=== PATIENT | female | born 1955 | race Caucasian/White ===

== ENCOUNTER 2019-02-24 17:50 | Inpatient (IN) ==
[2019-02-24] MEDS ORDERED: 0.9 % Sodium Chloride 1,000 ML IVC ONE (18:53)
[2019-02-24] MEDS ORDERED: Isovue-370 500 ML BOTTLE IVP ONE (18:54)
[2019-02-24 18:55] LABS: Basophils # 0.1 K/mcL (0.0-0.2); Basophils % 0.6 %; Eosinophils # 0.1 K/mcL (0.0-0.6); Eosinophils % 1.2 %; Hematocrit 43.9 % (35.3-44.9); Immature Granulocytes % 0.3 % (0-4); Lymphocytes # 1.9 K/mcL (0.6-4.6); Lymphocytes % 24.5 %; Mean Corpuscular HGB Conc 34.2 g/dL (31.6-35.5); Mean Corpuscular Hemoglobin 28.3 pg (28.0-33.3); Mean Corpuscular Volume 82.8 fL (83.0-100.0); Monocytes # 0.5 K/mcL (0.0-1.3); Monocytes % 6.4 %; Neutrophils # 5.2 K/mcL (1.6-8.9); Platelet Count 297 K/mcL (140-400); Red Cell Distribution Width 13.5 % (11.5-14.5); White Blood Count 7.8 K/mcL (4.3-11.1)
[2019-02-24 19:11] LABS: Alanine Aminotransferase 11 Units/L (7-52); Albumin 4.4 g/dL (3.5-5.7); Albumin/Globulin Ratio 1.5 (1.1-2.2); Alkaline Phosphatase 69 Units/L (34-104); Aspartate Amino Transferase 15 Units/L (13-39); BUN/Creatinine Ratio 16 (6-26); Bilirubin,Total 0.4 mg/dL (0.3-1.0); Blood Urea Nitrogen 9 mg/dL (8-23); Calcium 9.9 mg/dL (8.6-10.3); Carbon Dioxide 28 mEq/L (23-29); Chloride 99 mEq/L (98-107); Globulin 2.9 g/dL (2.4-3.5); Glucose 106 mg/dL (70-105); Magnesium 1.5 mg/dL (1.6-2.6); Osmolality,Calculated 277 (280-300); Phosphorous 3.3 mg/dL (2.7-4.5); Sodium 134 mEq/L (136-145); Total Protein 7.3 g/dL (6.4-8.9); Troponin I < 0.03 ng/mL (< 0.04); eGFR For African Americans > 60 (> 60); eGFR For Non-African Americans > 60 (> 60)
[2019-02-24 19:32] LABS: Bilirubin,Urine Negative (Negative); Blood,Urine Trace (Negative); Clarity,Urine Cloudy (Clear); Color,Urine Yellow (Yellow); Glucose,Urine (UA) Normal (Normal); Ketones,Urine Trace mg/dL (Negative); Leukocyte Esterase,Urine Moderate (Negative); Nitrite,Urine Negative (Negative); PH,Urine 6.5 pH Units (5.0-8.0); Protein,Urine Negative (Neg-Trace); Specific Gravity,Urine 1.007 (1.010-1.025); Urobilinogen,Urine Normal (Normal)
[2019-02-24 19:33] LABS: Bacteria,Urine Few per hpf (None-Few); Hyaline Casts,Urine Few per lpf (None-Few); Squamous Epithelial Cell,Urine Many per lpf (None-Few); WBC,Urine 30-50 per hpf (0-3)
[2019-02-25] MEDS ORDERED: Naloxone 0.4 MG/ML INJ IVP PRN (02:55)
[2019-02-25] MEDS ORDERED: 0.9 % Sodium Chloride 1,000 ML IVC SCH (03:00)
[2019-02-25 04:57] LABS: Basophils # 0.1 K/mcL (0.0-0.2); Basophils % 0.6 %; Eosinophils # 0.1 K/mcL (0.0-0.6); Eosinophils % 1.5 %; Hematocrit 42.4 % (35.3-44.9); Hemoglobin 13.8 g/dL (11.5-15.4); Immature Granulocytes % 0.1 % (0-4); Lymphocytes # 2.3 K/mcL (0.6-4.6); Mean Corpuscular HGB Conc 32.5 g/dL (31.6-35.5); Mean Corpuscular Hemoglobin 27.9 pg (28.0-33.3); Mean Corpuscular Volume 85.8 fL (83.0-100.0); Mean Platelet Volume 9.7 fL (9.4-12.4); Monocytes # 0.7 K/mcL (0.0-1.3); Monocytes % 7.4 %; Neutrophils # 5.7 K/mcL (1.6-8.9); Platelet Count 253 K/mcL (140-400); Red Blood Count 4.94 M/mcL (3.82-4.97); Red Cell Distribution Width 13.3 % (11.5-14.5); Segmented Neutrophils % 64.4 %; White Blood Count 8.8 K/mcL (4.3-11.1)
[2019-02-25 05:18] LABS: Alanine Aminotransferase 10 Units/L (7-52); Albumin 4.1 g/dL (3.5-5.7); Albumin/Globulin Ratio 1.6 (1.1-2.2); Alkaline Phosphatase 63 Units/L (34-104); Aspartate Amino Transferase 15 Units/L (13-39); BUN/Creatinine Ratio 14 (6-26); Bilirubin,Total 0.4 mg/dL (0.3-1.0); Blood Urea Nitrogen 9 mg/dL (8-23); Calcium 9.4 mg/dL (8.6-10.3); Carbon Dioxide 24 mEq/L (23-29); Chloride 103 mEq/L (98-107); Globulin 2.6 g/dL (2.4-3.5); Glucose 116 mg/dL (70-105); Magnesium 1.8 mg/dL (1.6-2.6); Osmolality,Calculated 284 (280-300); Potassium 3.7 mEq/L (3.5-5.1); Sodium 137 mEq/L (136-145); Total Protein 6.7 g/dL (6.4-8.9); eGFR For African Americans > 60 (> 60); eGFR For Non-African Americans > 60 (> 60)
[2019-02-25] MEDS ORDERED: Gadolinium Contrast Agent (WT Based) IV PRN ×2 (12:59→15:43)
[2019-02-25] MEDS ORDERED: *HR* LORazepam 2 MG/ML VIAL IVP ONE (13:35)
[2019-02-25] MEDS ORDERED: *HR* LORazepam 1 MG TABLET PO ONE (14:08)
[2019-02-25 14:12] LABS: Prothrombin Time 11.2 Seconds (9.4-12.1)
[2019-02-25] MEDS ORDERED: Ipratropium/Albuterol Neb 3 ML IH PRN (15:44)
[2019-02-25] MEDS ORDERED: Albuterol 2.5 MG/3 ML NEBULIZER IH PRN (15:44)
[2019-02-25] MEDS: *HR* OxyCODONE/APAP 10/325 TABLET PO PRN (18:43)
[2019-02-25] MEDS: Gabapentin 400 MG CAPSULE PO SCH (20:26)
[2019-02-26 05:29] LABS: Hematocrit 39.8 % (35.3-44.9); Hemoglobin 13.3 g/dL (11.5-15.4); Mean Corpuscular HGB Conc 33.4 g/dL (31.6-35.5); Mean Corpuscular Hemoglobin 27.8 pg (28.0-33.3); Mean Corpuscular Volume 83.1 fL (83.0-100.0); Mean Platelet Volume 9.6 fL (9.4-12.4); Platelet Count 248 K/mcL (140-400); Red Blood Count 4.79 M/mcL (3.82-4.97); Red Cell Distribution Width 13.3 % (11.5-14.5)
[2019-02-26 05:48] LABS: BUN/Creatinine Ratio 16 (6-26); Blood Urea Nitrogen 8 mg/dL (8-23); Calcium 9.1 mg/dL (8.6-10.3); Carbon Dioxide 24 mEq/L (23-29); Chloride 103 mEq/L (98-107); Glucose 96 mg/dL (70-105); Osmolality,Calculated 282 (280-300); Potassium 3.6 mEq/L (3.5-5.1); Sodium 137 mEq/L (136-145); eGFR For African Americans > 60 (> 60); eGFR For Non-African Americans > 60 (> 60)
[2019-02-26] MEDS: *HR* Heparin 5,000 UNIT/ML VIAL SQ SCH ×2 (09:18→18:21)
[2019-02-26] MEDS: Gabapentin 400 MG CAPSULE PO SCH ×2 (09:19→22:21)
[2019-02-26] MEDS ORDERED: Gadolinium Contrast Agent (WT Based) IV PRN (09:49)
[2019-02-26] MEDS ORDERED: *HR* LORazepam 1 MG TABLET PO ONE (09:49)
[2019-02-26] MEDS: *HR* OxyCODONE/APAP 10/325 TABLET PO PRN (20:19)
[2019-02-27] MEDS: *HR* Heparin 5,000 UNIT/ML VIAL SQ SCH (05:38)
[2019-02-27 07:20] LABS: Hematocrit 40.4 % (35.3-44.9); Mean Corpuscular HGB Conc 32.2 g/dL (31.6-35.5); Mean Corpuscular Hemoglobin 27.7 pg (28.0-33.3); Mean Corpuscular Volume 86.1 fL (83.0-100.0); Mean Platelet Volume 9.5 fL (9.4-12.4); Platelet Count 238 K/mcL (140-400); Red Blood Count 4.69 M/mcL (3.82-4.97); Red Cell Distribution Width 13.3 % (11.5-14.5); White Blood Count 7.4 K/mcL (4.3-11.1)
[2019-02-27 07:41] LABS: BUN/Creatinine Ratio 18 (6-26); Blood Urea Nitrogen 10 mg/dL (8-23); Calcium 9.2 mg/dL (8.6-10.3); Carbon Dioxide 25 mEq/L (23-29); Chloride 101 mEq/L (98-107); Glucose 94 mg/dL (70-105); Osmolality,Calculated 281 (280-300); Potassium 3.9 mEq/L (3.5-5.1); Sodium 136 mEq/L (136-145); eGFR For African Americans > 60 (> 60); eGFR For Non-African Americans > 60 (> 60)
[2019-02-27] MEDS: Gabapentin 400 MG CAPSULE PO SCH (09:50)
[2019-02-27 15:26] VITALS: BP 104/68
== END 2019-02-27 17:17 | disposition home or self-care (01) | DRG 948 ==
LOC: 3ANU 17:50 → EMEROOARM 17:50 → SUATTDRO 23:25 → 3ANU 23:50 → SUATTDRO 02-25 16:59
PROVIDERS: ADMIT Family Medicine; ATTEND Family Medicine

== ENCOUNTER 2019-03-02 19:17 | Inpatient (IN) ==
[2019-03-02] MEDS ORDERED: Ondansetron ODT 4 MG TAB.RAPDIS SL STA (20:11)
[2019-03-02] MEDS ORDERED: Ringers Solution, Lactated 1,000 ML IVC ONE (20:12)
[2019-03-02] MEDS ORDERED: Ringers Solution, Lactated 1,000 ML ONE (20:19)
[2019-03-02 20:22] LABS: Basophils # 0.1 K/mcL (0.0-0.2); Basophils % 0.5 %; Eosinophils # 0.1 K/mcL (0.0-0.6); Eosinophils % 0.5 %; Hematocrit 47.8 % (35.3-44.9); Immature Granulocytes % 0.3 % (0-4); Lymphocytes # 1.9 K/mcL (0.6-4.6); Lymphocytes % 17.7 %; Mean Corpuscular HGB Conc 33.5 g/dL (31.6-35.5); Mean Corpuscular Hemoglobin 28.1 pg (28.0-33.3); Mean Corpuscular Volume 83.9 fL (83.0-100.0); Mean Platelet Volume 9.6 fL (9.4-12.4); Monocytes # 0.6 K/mcL (0.0-1.3); Monocytes % 5.7 %; Neutrophils # 8.2 K/mcL (1.6-8.9); Platelet Count 312 K/mcL (140-400); Red Cell Distribution Width 13.3 % (11.5-14.5); Segmented Neutrophils % 75.3 %
[2019-03-02 20:29] LABS: Prothrombin Time 11.8 Seconds (9.4-12.1)
[2019-03-02 20:32] LABS: Activated Partial Thrombo Time 32.4 Seconds (26.0-36.0)
[2019-03-02 20:37] LABS: Alanine Aminotransferase 11 Units/L (7-52); Albumin 4.5 g/dL (3.5-5.7); Albumin/Globulin Ratio 1.5 (1.1-2.2); Alkaline Phosphatase 65 Units/L (34-104); Aspartate Amino Transferase 14 Units/L (13-39); BUN/Creatinine Ratio 19 (6-26); Bilirubin,Total 0.4 mg/dL (0.3-1.0); Blood Urea Nitrogen 12 mg/dL (8-23); Calcium 10.3 mg/dL (8.6-10.3); Carbon Dioxide 31 mEq/L (23-29); Chloride 99 mEq/L (98-107); Globulin 3.1 g/dL (2.4-3.5); Glucose 110 mg/dL (70-105); Magnesium 1.8 mg/dL (1.6-2.6); Osmolality,Calculated 286 (280-300); Phosphorous 3.5 mg/dL (2.7-4.5); Potassium 4.5 mEq/L (3.5-5.1); Sodium 138 mEq/L (136-145); Total Protein 7.6 g/dL (6.4-8.9); eGFR For African Americans > 60 (> 60); eGFR For Non-African Americans > 60 (> 60)
[2019-03-02 21:37] LABS: Bilirubin,Urine Negative (Negative); Blood,Urine Negative (Negative); Clarity,Urine Cloudy (Clear); Color,Urine Yellow (Yellow); Glucose,Urine (UA) Normal (Normal); Ketones,Urine 40 mg/dL (Negative); Leukocyte Esterase,Urine Negative (Negative); Nitrite,Urine Negative (Negative); Protein,Urine 30 mg/dL (Neg-Trace); Urobilinogen,Urine Normal (Normal)
[2019-03-02 21:39] LABS: Bacteria,Urine None Seen per hpf (None-Few); Squamous Epithelial Cell,Urine Many per lpf (None-Few)
[2019-03-02 21:49] LABS: Hyaline Casts,Urine Many per lpf (None-Few)
[2019-03-02] MEDS ORDERED: Acetaminophen 325 MG TABLET PO PRN (22:23)
[2019-03-02] MEDS ORDERED: traMADol 50 MG TABLET PO PRN (22:23)
[2019-03-02] MEDS: Gabapentin 400 MG CAPSULE PO SCH (23:25)
[2019-03-02] MEDS: *HR* OxyCODONE Immed Rel 5 MG TABLET PO PRN (23:25)
[2019-03-02] MEDS: Ringers Solution, Lactated 1,000 ML IVC SCH (23:26)
[2019-03-03] MEDS: *HR* Heparin 5,000 UNIT/ML VIAL SQ SCH ×2 (05:35→16:45)
[2019-03-03 06:51] LABS: Basophils # 0.1 K/mcL (0.0-0.2); Basophils % 0.6 %; Eosinophils # 0.2 K/mcL (0.0-0.6); Eosinophils % 1.7 %; Immature Granulocytes % 0.2 % (0-4); Lymphocytes # 3.2 K/mcL (0.6-4.6); Lymphocytes % 33.4 %; Mean Corpuscular HGB Conc 32.1 g/dL (31.6-35.5); Mean Corpuscular Hemoglobin 27.9 pg (28.0-33.3); Mean Corpuscular Volume 86.9 fL (83.0-100.0); Mean Platelet Volume 9.5 fL (9.4-12.4); Monocytes # 0.8 K/mcL (0.0-1.3); Monocytes % 8.5 %; Neutrophils # 5.3 K/mcL (1.6-8.9); Platelet Count 236 K/mcL (140-400); Red Blood Count 4.95 M/mcL (3.82-4.97); Red Cell Distribution Width 13.3 % (11.5-14.5); Segmented Neutrophils % 55.6 %; White Blood Count 9.5 K/mcL (4.3-11.1)
[2019-03-03 06:52] LABS: Hemoglobin 13.8 g/dL (11.5-15.4)
[2019-03-03 07:28] LABS: BUN/Creatinine Ratio 24 (6-26); Blood Urea Nitrogen 12 mg/dL (8-23); Calcium 9.5 mg/dL (8.6-10.3); Carbon Dioxide 29 mEq/L (23-29); Chloride 101 mEq/L (98-107); Glucose 97 mg/dL (70-105); Osmolality,Calculated 288 (280-300); Potassium 3.8 mEq/L (3.5-5.1); Sodium 139 mEq/L (136-145); eGFR For African Americans > 60 (> 60); eGFR For Non-African Americans > 60 (> 60)
[2019-03-03] MEDS: Gabapentin 400 MG CAPSULE PO SCH ×2 (07:40→21:39)
[2019-03-03] MEDS: Ringers Solution, Lactated 1,000 ML IVC SCH ×3 (07:40→18:27)
[2019-03-03] MEDS ORDERED: [UNRECOGNIZED DRUG - OTHER] IVC SCH (14:30)
[2019-03-03] MEDS: *HR* OxyCODONE Immed Rel 5 MG TABLET PO PRN (15:26)
[2019-03-03] MEDS: Pyridostigmine Br 60 MG TABLET PO SCH ×2 (15:27→22:51)
[2019-03-03] MEDS ORDERED: Pyridostigmine Br 60 MG TABLET PO SCH (16:00)
[2019-03-03] MEDS: Immune Glob, Gamma (Privigen) 20 GM/200 ML INFUS..BTL IVC SCH (16:28)
[2019-03-04 05:49] LABS: BUN/Creatinine Ratio 19 (6-26); Blood Urea Nitrogen 9 mg/dL (8-23); Calcium 8.6 mg/dL (8.6-10.3); Carbon Dioxide 24 mEq/L (23-29); Chloride 106 mEq/L (98-107); Glucose 87 mg/dL (70-105); Osmolality,Calculated 280 (280-300); Potassium 3.8 mEq/L (3.5-5.1); Sodium 136 mEq/L (136-145); eGFR For African Americans > 60 (> 60); eGFR For Non-African Americans > 60 (> 60)
[2019-03-04] MEDS: *HR* Heparin 5,000 UNIT/ML VIAL SQ SCH ×2 (06:24→16:38)
[2019-03-04] MEDS: Ringers Solution, Lactated 1,000 ML IVC SCH (07:05)
[2019-03-04] MEDS: Pyridostigmine Br 60 MG TABLET PO SCH ×2 (07:05→15:28)
[2019-03-04] MEDS: Gabapentin 400 MG CAPSULE PO SCH (07:05)
[2019-03-04] MEDS: Ondansetron 4 MG/2 ML VIAL IVP PRN ×2 (09:18→15:28)
[2019-03-04] MEDS: *HR* OxyCODONE Immed Rel 5 MG TABLET PO PRN (12:23)
[2019-03-04 15:40] VITALS: BP 144/87
[2019-03-04] MEDS: Immune Glob, Gamma (Privigen) 20 GM/200 ML INFUS..BTL IVC SCH (15:44)
[2019-03-04] MEDS ORDERED: [UNRECOGNIZED DRUG - OTHER] IVC SCH (17:00)
== END 2019-03-04 18:59 | disposition critical access hospital (66) | DRG 57 ==
LOC: 3BNU 19:17 → EMEROOARM 19:17 → 3BNU 22:39
PROVIDERS: ADMIT Internal Medicine; ATTEND Internal Medicine

== ENCOUNTER 2019-11-04 16:54 | Inpatient (IN) ==
[2019-11-04] MEDS ORDERED: Ipratropium/Albuterol Neb 3 ML IH ONE ×2 (17:05→17:47)
[2019-11-04] MEDS ORDERED: methylPREDNISolone 125 MG/2 ML VIAL IVP ONE (17:40)
[2019-11-04 17:47] LABS: Alanine Aminotransferase 42 Units/L (7-52); Albumin 4.1 g/dL (3.5-5.7); Albumin/Globulin Ratio 1.8 (1.1-2.2); Alkaline Phosphatase 82 Units/L (34-104); Aspartate Amino Transferase 12 Units/L (13-39); BUN/Creatinine Ratio 36 (6-26); Bilirubin,Direct 0.1 mg/dL (0.0-0.2); Bilirubin,Indirect 0.3 mg/dL (0.0-1.0); Bilirubin,Total 0.4 mg/dL (0.3-1.0); Blood Urea Nitrogen 27 mg/dL (8-23); Calcium 9.5 mg/dL (8.6-10.3); Carbon Dioxide 25 mEq/L (23-29); Chloride 95 mEq/L (98-107); Globulin 2.3 g/dL (2.4-3.5); Glucose 185 mg/dL (70-105); Osmolality,Calculated 282 (280-300); Potassium 4.3 mEq/L (3.5-5.1); Sodium 131 mEq/L (136-145); Total Protein 6.4 g/dL (6.4-8.9); Troponin I < 0.03 ng/mL (< 0.04); eGFR For African Americans > 60 (> 60); eGFR For Non-African Americans > 60 (> 60)
[2019-11-04 17:56] LABS: Activated Partial Thrombo Time 24.3 Seconds (26.0-36.0); INR 0.9; Prothrombin Time 10.6 Seconds (9.4-12.1)
[2019-11-04 18:05] LABS: Hematocrit 32.2 % (35.3-44.9); Hemoglobin 10.1 g/dL (11.5-15.4); Mean Corpuscular HGB Conc 31.4 g/dL (31.6-35.5); Mean Corpuscular Hemoglobin 28.6 pg (28.0-33.3); Mean Corpuscular Volume 91.2 fL (83.0-100.0); Neutrophils # 2.7 K/mcL (1.6-8.9); Platelet Count 226 K/mcL (140-400); Red Blood Count 3.53 M/mcL (3.82-4.97); Red Cell Distribution Width 16.5 % (11.5-14.5); Segmented Neutrophils % 71.6 %; White Blood Count 3.7 K/mcL (4.3-11.1)
[2019-11-04 18:06] LABS: Basophils % 0.3 %; Immature Granulocytes % 5.7 % (0-4); Lymphocytes # 0.7 K/mcL (0.6-4.6); Lymphocytes % 19.1 %; Mean Platelet Volume 8.5 fL (9.4-12.4); Monocytes # 0.1 K/mcL (0.0-1.3); Monocytes % 3.3 %
[2019-11-04 18:16] LABS: Dohle Bodies Present (Not Present)
[2019-11-04] MEDS ORDERED: Azithromycin 500 MG in 0.9 % Sodium Chloride 250 ML IVPB SCH (20:00)
[2019-11-04] MEDS ORDERED: Acetaminophen 325 MG TABLET PO PRN (20:07)
[2019-11-04] MEDS: *HR* Enoxaparin 80 MG/0.8 ML SYRINGE SQ SCH (22:18)
[2019-11-04] MEDS: Gabapentin 400 MG CAPSULE PO SCH (22:19)
[2019-11-04] MEDS: Melatonin 3 MG TABLET PO SCH (22:19)
[2019-11-04] MEDS: [UNRECOGNIZED DRUG - OTHER] PO SCH (22:19)
[2019-11-04] MEDS: Ipratropium 1 PUFF INHALER IH SCH (22:59)
[2019-11-04] MEDS ORDERED: Ipratropium/Albuterol Neb 3 ML IH SCH (23:00)
[2019-11-04] MEDS: MethylPREDNISolone 40 MG/ML VIAL IVP SCH (23:23)
[2019-11-04] MEDS: *HR* OxyCODONE/APAP 10/325 TABLET PO PRN (23:23)
[2019-11-05 02:21] LABS: Basophils % 0.6 %; Hematocrit 28.7 % (35.3-44.9); Hemoglobin 9.2 g/dL (11.5-15.4); Immature Granulocytes % 6.5 % (0-4); Lymphocytes # 0.2 K/mcL (0.6-4.6); Lymphocytes % 14.2 %; Mean Corpuscular HGB Conc 32.1 g/dL (31.6-35.5); Mean Corpuscular Hemoglobin 29.3 pg (28.0-33.3); Mean Corpuscular Volume 91.4 fL (83.0-100.0); Mean Platelet Volume 8.9 fL (9.4-12.4); Monocytes # 0.1 K/mcL (0.0-1.3); Monocytes % 7.7 %; Neutrophils # 1.2 K/mcL (1.6-8.9); Platelet Count 202 K/mcL (140-400); Red Blood Count 3.14 M/mcL (3.82-4.97); Red Cell Distribution Width 16.4 % (11.5-14.5); White Blood Count 1.7 K/mcL (4.3-11.1)
[2019-11-05 02:39] LABS: Alanine Aminotransferase 37 Units/L (7-52); Albumin 3.7 g/dL (3.5-5.7); Albumin/Globulin Ratio 1.8 (1.1-2.2); Alkaline Phosphatase 72 Units/L (34-104); Aspartate Amino Transferase 10 Units/L (13-39); BUN/Creatinine Ratio 37 (6-26); Bilirubin,Total 0.4 mg/dL (0.3-1.0); Blood Urea Nitrogen 26 mg/dL (8-23); Carbon Dioxide 26 mEq/L (23-29); Chloride 96 mEq/L (98-107); Globulin 2.1 g/dL (2.4-3.5); Glucose 221 mg/dL (70-105); Osmolality,Calculated 284 (280-300); Potassium 4.5 mEq/L (3.5-5.1); Sodium 131 mEq/L (136-145); Total Protein 5.8 g/dL (6.4-8.9); eGFR For African Americans > 60 (> 60); eGFR For Non-African Americans > 60 (> 60)
[2019-11-05 02:42] LABS: Platelet Estimate Normal (Normal)
[2019-11-05] MEDS: Ipratropium 1 PUFF INHALER IH SCH ×6 (04:05→23:22)
[2019-11-05] MEDS ORDERED: 0.9 % Sodium Chloride 1,000 ML IVC SCH (05:15)
[2019-11-05] MEDS: MethylPREDNISolone 40 MG/ML VIAL IVP SCH ×4 (05:27→22:54)
[2019-11-05] MEDS: Gabapentin 300 MG CAPSULE PO SCH (07:58)
[2019-11-05] MEDS: *HR* Enoxaparin 80 MG/0.8 ML SYRINGE SQ SCH ×2 (07:58→19:50)
[2019-11-05] MEDS: [UNRECOGNIZED DRUG - OTHER] PO SCH ×3 (07:59→21:42)
[2019-11-05] MEDS: *HR* OxyCODONE/APAP 10/325 TABLET PO PRN ×3 (08:19→22:53)
[2019-11-05] MEDS ORDERED: *HR* OxyCODONE/APAP 10/325 TABLET PO PRN (10:29)
[2019-11-05] MEDS ORDERED: Dextrose Gel 15 GM/37.5 ML TUBE PO PRN ×2 (12:14)
[2019-11-05] MEDS ORDERED: D5% in Water 1,000 ML IVC PRN (12:14)
[2019-11-05] MEDS ORDERED: *HR* Dextrose 50 % in Water (Vial) 50 ML VIAL IVP PRN (12:14)
[2019-11-05] MEDS ORDERED: Insulin LISPRO 300 UNITS/3 ML VIAL SQ SCH ×2 (12:15)
[2019-11-05] MEDS: Melatonin 3 MG TABLET PO SCH (19:50)
[2019-11-05] MEDS: Gabapentin 400 MG CAPSULE PO SCH (19:50)
[2019-11-05] MEDS: Azithromycin 250 MG TABLET PO SCH (22:54)
[2019-11-06 02:02] LABS: Hematocrit 28.2 % (35.3-44.9); Hemoglobin 8.8 g/dL (11.5-15.4); Mean Corpuscular HGB Conc 31.2 g/dL (31.6-35.5); Mean Corpuscular Hemoglobin 28.4 pg (28.0-33.3); Mean Platelet Volume 8.9 fL (9.4-12.4); Platelet Count 167 K/mcL (140-400); Red Cell Distribution Width 15.9 % (11.5-14.5)
[2019-11-06 02:19] LABS: BUN/Creatinine Ratio 45 (6-26); Blood Urea Nitrogen 27 mg/dL (8-23); Calcium 8.9 mg/dL (8.6-10.3); Carbon Dioxide 26 mEq/L (23-29); Chloride 98 mEq/L (98-107); Glucose 149 mg/dL (70-105); Osmolality,Calculated 282 (280-300); Potassium 4.6 mEq/L (3.5-5.1); Sodium 132 mEq/L (136-145); eGFR For African Americans > 60 (> 60); eGFR For Non-African Americans > 60 (> 60)
[2019-11-06] MEDS: Ipratropium 1 PUFF INHALER IH SCH ×7 (04:22→23:42)
[2019-11-06] MEDS: *HR* OxyCODONE/APAP 10/325 TABLET PO PRN ×3 (04:49→19:55)
[2019-11-06] MEDS: MethylPREDNISolone 40 MG/ML VIAL IVP SCH ×2 (04:59→16:59)
[2019-11-06] MEDS ORDERED: Gabapentin 300 MG CAPSULE PO SCH (09:00)
[2019-11-06] MEDS: hydrALAZINE 25 MG TABLET PO SCH ×2 (09:14→16:59)
[2019-11-06] MEDS: *HR* Enoxaparin 80 MG/0.8 ML SYRINGE SQ SCH ×2 (09:14→19:55)
[2019-11-06] MEDS: Gabapentin 300 MG CAPSULE PO SCH (09:14)
[2019-11-06 09:18] LABS: Hematocrit 31.7 % (35.3-44.9); Hemoglobin 9.9 g/dL (11.5-15.4); Mean Corpuscular HGB Conc 31.2 g/dL (31.6-35.5); Mean Corpuscular Hemoglobin 28.8 pg (28.0-33.3); Mean Corpuscular Volume 92.2 fL (83.0-100.0); Mean Platelet Volume 9.1 fL (9.4-12.4); Monocytes # 0.1 K/mcL (0.0-1.3); Platelet Count 166 K/mcL (140-400); Red Blood Count 3.44 M/mcL (3.82-4.97); Red Cell Distribution Width 16.1 % (11.5-14.5)
[2019-11-06 09:51] LABS: Lymphocytes # 0.3 K/mcL (0.6-4.6); Neutrophils # 0.5 K/mcL (1.6-8.9); Platelet Estimate Normal (Normal)
[2019-11-06] MEDS: [UNRECOGNIZED DRUG - OTHER] PO SCH ×3 (10:10→19:58)
[2019-11-06] MEDS: Melatonin 3 MG TABLET PO SCH (19:54)
[2019-11-06] MEDS: Gabapentin 400 MG CAPSULE PO SCH (19:58)
[2019-11-06] MEDS: Azithromycin 250 MG TABLET PO SCH (22:42)
[2019-11-07] MEDS: hydrALAZINE 25 MG TABLET PO SCH ×4 (02:07→22:36)
[2019-11-07] MEDS: Ipratropium 1 PUFF INHALER IH SCH ×3 (04:05→11:30)
[2019-11-07 04:32] LABS: Amorphous Sediment,Urine Few per hpf (None-Few); Bacteria,Urine Many per hpf (None-Few); Bilirubin,Urine Negative (Negative); Blood,Urine Negative (Negative); Clarity,Urine Turbid (Clear); Color,Urine Light-Yellow (Yellow); Glucose,Urine (UA) Normal (Normal); Ketones,Urine Negative (Negative); Leukocyte Esterase,Urine Trace (Negative); Mucus,Urine Few per lpf (None-Few); Nitrite,Urine Positive (Negative); PH,Urine 8.5 pH Units (5.0-8.0); Protein,Urine Trace mg/dL (Neg-Trace); RBC,Urine 0-3 per hpf (0-3); Squamous Epithelial Cell,Urine Few per hpf (None-Few); Urobilinogen,Urine Normal (Normal); WBC,Urine 15-30 per hpf (0-3)
[2019-11-07] MEDS: *HR* OxyCODONE/APAP 10/325 TABLET PO PRN ×4 (05:09→22:43)
[2019-11-07] MEDS: MethylPREDNISolone 40 MG/ML VIAL IVP SCH (05:10)
[2019-11-07 07:08] LABS: BUN/Creatinine Ratio 45 (6-26); Blood Urea Nitrogen 29 mg/dL (8-23); Calcium 8.9 mg/dL (8.6-10.3); Carbon Dioxide 28 mEq/L (23-29); Chloride 97 mEq/L (98-107); Glucose 123 mg/dL (70-105); Osmolality,Calculated 281 (280-300); Potassium 3.8 mEq/L (3.5-5.1); Sodium 132 mEq/L (136-145); eGFR For African Americans > 60 (> 60); eGFR For Non-African Americans > 60 (> 60)
[2019-11-07] MEDS: cefTRIAXone 1,000 MG in Water for inj. (sterile) 10 ML IVP SCH (09:27)
[2019-11-07] MEDS: Gabapentin 300 MG CAPSULE PO SCH (09:28)
[2019-11-07] MEDS: *HR* Enoxaparin 80 MG/0.8 ML SYRINGE SQ SCH ×2 (09:28→22:35)
[2019-11-07] MEDS: [UNRECOGNIZED DRUG - OTHER] PO SCH ×3 (09:42→22:41)
[2019-11-07 10:01] LABS: Hematocrit 29.3 % (35.3-44.9); Hemoglobin 9.3 g/dL (11.5-15.4); Immature Granulocytes % 6.7 % (0-4); Mean Corpuscular HGB Conc 31.7 g/dL (31.6-35.5); Mean Corpuscular Hemoglobin 29.2 pg (28.0-33.3); Mean Corpuscular Volume 91.8 fL (83.0-100.0); Mean Platelet Volume 8.6 fL (9.4-12.4); Neutrophils # 0.6 K/mcL (1.6-8.9); Platelet Count 133 K/mcL (140-400); Red Blood Count 3.19 M/mcL (3.82-4.97); Red Cell Distribution Width 16.6 % (11.5-14.5); Segmented Neutrophils % 38.7 %; White Blood Count 1.6 K/mcL (4.3-11.1)
[2019-11-07 10:02] LABS: Basophils % 0.6 %; Lymphocytes # 0.7 K/mcL (0.6-4.6); Lymphocytes % 43.6 %; Monocytes # 0.2 K/mcL (0.0-1.3); Monocytes % 10.4 %; Platelet Estimate Slight Decrease (Normal)
[2019-11-07 10:03] LABS: Anisocytosis 1+ (Not Present)
[2019-11-07] MEDS: Ipratropium/Albuterol Neb 3 ML IH SCH ×3 (15:30→23:19)
[2019-11-07] MEDS: Azithromycin 250 MG TABLET PO SCH (22:36)
[2019-11-07] MEDS: Gabapentin 400 MG CAPSULE PO SCH (22:36)
[2019-11-07] MEDS: Melatonin 3 MG TABLET PO SCH (22:36)
[2019-11-08 02:13] LABS: Basophils % 0.9 %; Hematocrit 27.2 % (35.3-44.9); Hemoglobin 8.8 g/dL (11.5-15.4); Lymphocytes # 1.1 K/mcL (0.6-4.6); Lymphocytes % 34.8 %; Mean Corpuscular HGB Conc 32.4 g/dL (31.6-35.5); Mean Corpuscular Hemoglobin 29.9 pg (28.0-33.3); Mean Corpuscular Volume 92.5 fL (83.0-100.0); Mean Platelet Volume 9.5 fL (9.4-12.4); Monocytes # 0.1 K/mcL (0.0-1.3); Monocytes % 4.4 %; Neutrophils # 1.5 K/mcL (1.6-8.9); Nucleated Red Blood Cells 3.8 /100 WBC (0); Platelet Count 100 K/mcL (140-400); Red Blood Count 2.94 M/mcL (3.82-4.97); Segmented Neutrophils % 46.9 %; White Blood Count 3.2 K/mcL (4.3-11.1)
[2019-11-08 02:29] LABS: BUN/Creatinine Ratio 44 (6-26); Blood Urea Nitrogen 24 mg/dL (8-23); Calcium 8.4 mg/dL (8.6-10.3); Carbon Dioxide 27 mEq/L (23-29); Chloride 99 mEq/L (98-107); Glucose 98 mg/dL (70-105); Osmolality,Calculated 282 (280-300); Potassium 3.7 mEq/L (3.5-5.1); Sodium 134 mEq/L (136-145); eGFR For African Americans > 60 (> 60); eGFR For Non-African Americans > 60 (> 60)
[2019-11-08 02:58] LABS: Hypochromasia Present (Not Present); Platelet Estimate Decreased (Normal)
[2019-11-08 02:59] LABS: Anisocytosis 1+ (Not Present)
[2019-11-08] MEDS: Ipratropium/Albuterol Neb 3 ML IH SCH ×6 (03:50→23:39)
[2019-11-08] MEDS: *HR* OxyCODONE/APAP 10/325 TABLET PO PRN ×3 (08:57→23:14)
[2019-11-08] MEDS: hydrALAZINE 25 MG TABLET PO SCH ×3 (08:57→23:15)
[2019-11-08] MEDS: [UNRECOGNIZED DRUG - OTHER] PO SCH (08:57)
[2019-11-08] MEDS: predniSONE 20 MG TABLET PO SCH ×3 (08:58→16:07)
[2019-11-08] MEDS: Gabapentin 300 MG CAPSULE PO SCH (08:58)
[2019-11-08] MEDS: *HR* Enoxaparin 80 MG/0.8 ML SYRINGE SQ SCH ×2 (08:58→19:56)
[2019-11-08] MEDS: cefTRIAXone 1,000 MG in Water for inj. (sterile) 10 ML IVP SCH (08:58)
[2019-11-08] MEDS ORDERED: predniSONE 20 MG TABLET PO SCH (09:00)
[2019-11-08] MEDS: Cefepime HCl 2,000 MG in Water for inj. (sterile) 20 ML IVP SCH ×2 (12:47→19:55)
[2019-11-08] MEDS: [UNRECOGNIZED DRUG - OTHER] PO SCH ×2 (14:56→19:56)
[2019-11-08] MEDS: Gabapentin 400 MG CAPSULE PO SCH (19:55)
[2019-11-08] MEDS: Melatonin 3 MG TABLET PO SCH (19:56)
[2019-11-08] MEDS: Azithromycin 250 MG TABLET PO SCH (23:15)
[2019-11-09 01:29] LABS: Hematocrit 29.2 % (35.3-44.9); Hemoglobin 9.2 g/dL (11.5-15.4); Mean Corpuscular HGB Conc 31.5 g/dL (31.6-35.5); Mean Corpuscular Hemoglobin 29.1 pg (28.0-33.3); Mean Corpuscular Volume 92.4 fL (83.0-100.0); Mean Platelet Volume 9.1 fL (9.4-12.4); Nucleated Red Blood Cells 0.8 /100 WBC (0); Red Blood Count 3.16 M/mcL (3.82-4.97); Red Cell Distribution Width 17.6 % (11.5-14.5); White Blood Count 8.6 K/mcL (4.3-11.1)
[2019-11-09 01:41] LABS: BUN/Creatinine Ratio 30 (6-26); Blood Urea Nitrogen 18 mg/dL (8-23); Calcium 8.8 mg/dL (8.6-10.3); Carbon Dioxide 22 mEq/L (23-29); Chloride 98 mEq/L (98-107); Glucose 200 mg/dL (70-105); Osmolality,Calculated 284 (280-300); Potassium 4.6 mEq/L (3.5-5.1); Sodium 133 mEq/L (136-145); eGFR For African Americans > 60 (> 60); eGFR For Non-African Americans > 60 (> 60)
[2019-11-09 02:04] LABS: Platelet Count 66 K/mcL (140-400)
[2019-11-09 02:07] LABS: Lymphocytes # 1.4 K/mcL (0.6-4.6); Monocytes # 0.2 K/mcL (0.0-1.3); Neutrophils # 6.2 K/mcL (1.6-8.9)
[2019-11-09] MEDS: Cefepime HCl 2,000 MG in Water for inj. (sterile) 20 ML IVP SCH ×3 (03:07→21:01)
[2019-11-09] MEDS: Ipratropium/Albuterol Neb 3 ML IH SCH ×6 (03:48→23:20)
[2019-11-09] MEDS: *HR* OxyCODONE/APAP 10/325 TABLET PO PRN ×3 (06:13→21:02)
[2019-11-09] MEDS: Gabapentin 300 MG CAPSULE PO SCH (07:41)
[2019-11-09] MEDS: predniSONE 20 MG TABLET PO SCH ×3 (07:41→17:16)
[2019-11-09] MEDS: *HR* Enoxaparin 80 MG/0.8 ML SYRINGE SQ SCH (07:41)
[2019-11-09] MEDS: [UNRECOGNIZED DRUG - OTHER] PO SCH ×3 (07:42→21:02)
[2019-11-09] MEDS: hydrALAZINE 25 MG TABLET PO SCH ×2 (07:47→17:08)
[2019-11-09] MEDS: Melatonin 3 MG TABLET PO SCH (21:02)
[2019-11-09] MEDS: Gabapentin 400 MG CAPSULE PO SCH (21:02)
[2019-11-10] MEDS: hydrALAZINE 25 MG TABLET PO SCH ×3 (01:42→17:14)
[2019-11-10] MEDS: Cefepime HCl 2,000 MG in Water for inj. (sterile) 20 ML IVP SCH ×3 (03:15→18:06)
[2019-11-10] MEDS: *HR* OxyCODONE/APAP 10/325 TABLET PO PRN ×3 (03:19→21:28)
[2019-11-10] MEDS: Ipratropium/Albuterol Neb 3 ML IH SCH ×5 (03:36→20:21)
[2019-11-10 04:44] LABS: Hematocrit 26.1 % (35.3-44.9); Hemoglobin 8.2 g/dL (11.5-15.4); Immature Platelets 3.9 % (1.1-6.1); Mean Corpuscular HGB Conc 31.4 g/dL (31.6-35.5); Mean Corpuscular Hemoglobin 28.9 pg (28.0-33.3); Mean Corpuscular Volume 91.9 fL (83.0-100.0); Mean Platelet Volume 9.4 fL (9.4-12.4); Nucleated Red Blood Cells 0.6 /100 WBC (0); Red Blood Count 2.84 M/mcL (3.82-4.97); Red Cell Distribution Width 17.2 % (11.5-14.5); White Blood Count 15.5 K/mcL (4.3-11.1)
[2019-11-10 04:47] LABS: Platelet Count 71 K/mcL (140-400)
[2019-11-10 05:00] LABS: BUN/Creatinine Ratio 28 (6-26); Blood Urea Nitrogen 19 mg/dL (8-23); Calcium 9.2 mg/dL (8.6-10.3); Carbon Dioxide 27 mEq/L (23-29); Chloride 97 mEq/L (98-107); Glucose 150 mg/dL (70-105); Osmolality,Calculated 279 (280-300); Potassium 4.6 mEq/L (3.5-5.1); Sodium 132 mEq/L (136-145); eGFR For African Americans > 60 (> 60); eGFR For Non-African Americans > 60 (> 60)
[2019-11-10 05:05] LABS: Anisocytosis 1+ (Not Present); Lymphocytes # 1.9 K/mcL (0.6-4.6); Microcytosis Present (Not Present); Monocytes # 0.3 K/mcL (0.0-1.3); Neutrophils # 12.1 K/mcL (1.6-8.9); Platelet Estimate Decreased (Normal); Reactive Lymphocytes Present (Not Present)
[2019-11-10 05:06] LABS: Toxic Granulation Present (Not Present)
[2019-11-10] MEDS: Gabapentin 300 MG CAPSULE PO SCH (08:47)
[2019-11-10] MEDS: predniSONE 20 MG TABLET PO SCH ×3 (08:47→16:05)
[2019-11-10] MEDS: [UNRECOGNIZED DRUG - OTHER] PO SCH ×3 (08:51→21:28)
[2019-11-10] MEDS ORDERED: Heparin 1,000 UNITS/500 mL 500 ML ONE (12:45)
[2019-11-10] MEDS ORDERED: 0.9 % Sodium Chloride 500 ML ONE (12:58)
[2019-11-10] MEDS ORDERED: *HR* FentaNYL (PF) 100 MCG/2 ML VIAL ONE (12:59)
[2019-11-10] MEDS ORDERED: *HR* Midazolam HCl 2 MG/2 ML VIAL ONE (12:59)
[2019-11-10] MEDS ORDERED: *HR* Midazolam HCl 2 MG/2 ML VIAL IVP ONE (13:17)
[2019-11-10] MEDS ORDERED: *HR* FentaNYL (PF) 100 MCG/2 ML VIAL IVP ONE (13:17)
[2019-11-10] MEDS: *HR* Enoxaparin 80 MG/0.8 ML SYRINGE SQ SCH (21:27)
[2019-11-10] MEDS: Melatonin 3 MG TABLET PO SCH (21:27)
[2019-11-10] MEDS: Gabapentin 400 MG CAPSULE PO SCH (21:28)
[2019-11-10] MEDS ORDERED: Furosemide 20 MG/2 ML VIAL IVP ONE (22:03)
[2019-11-10] MEDS ORDERED: 0.9 % Sodium Chloride 250 ML IVC SCH (22:15)
[2019-11-10] MEDS: Budesonide/Formoterol 160/4.5 1 PUFF INH IH SCH (23:53)
[2019-11-11] MEDS: Cefepime HCl 2,000 MG in Water for inj. (sterile) 20 ML IVP SCH ×2 (02:24→11:12)
[2019-11-11] MEDS: Budesonide/Formoterol 160/4.5 1 PUFF INH IH SCH (07:39)
[2019-11-11] MEDS: [UNRECOGNIZED DRUG - OTHER] PO SCH (08:07)
[2019-11-11] MEDS: *HR* OxyCODONE/APAP 10/325 TABLET PO PRN (08:07)
[2019-11-11] MEDS: *HR* Enoxaparin 80 MG/0.8 ML SYRINGE SQ SCH (08:07)
[2019-11-11] MEDS: predniSONE 20 MG TABLET PO SCH ×2 (08:07→11:12)
[2019-11-11] MEDS: Gabapentin 300 MG CAPSULE PO SCH (08:07)
[2019-11-11] MEDS ORDERED: Tiotropium 18 MCG inhalation IH SCH (10:00)
[2019-11-11 10:48] VITALS: BP 121/74
== END 2019-11-11 13:18 | DRG 178 ==
LOC: EMEROOARM 16:54 → 2NENU 16:54 → SUATTDRO 11-05 13:09 → 2ANU 11-06 22:33
PROVIDERS: ADMIT Internal Medicine; ATTEND Internal Medicine

== ENCOUNTER 2019-11-14 15:49 | Inpatient (IN) ==
[2019-11-14] MEDS ORDERED: 0.9 % Sodium Chloride 500 ML IVC ONE (16:20)
[2019-11-14 17:13] LABS: Platelet Count 139 K/mcL (140-400); Red Cell Distribution Width 17.7 % (11.5-14.5)
[2019-11-14 17:15] LABS: Hematocrit 31.8 % (35.3-44.9); Hemoglobin 9.9 g/dL (11.5-15.4); Mean Corpuscular HGB Conc 31.1 g/dL (31.6-35.5); Mean Corpuscular Hemoglobin 28.7 pg (28.0-33.3); Mean Corpuscular Volume 92.2 fL (83.0-100.0); Mean Platelet Volume 9.1 fL (9.4-12.4); Nucleated Red Blood Cells 0.8 /100 WBC (0); Red Blood Count 3.45 M/mcL (3.82-4.97)
[2019-11-14 17:21] LABS: Bacteria,Urine Few per hpf (None-Few); Bilirubin,Urine Negative (Negative); Blood,Urine Negative (Negative); Clarity,Urine Clear (Clear); Color,Urine Yellow (Yellow); Glucose,Urine (UA) Normal (Normal); Ketones,Urine Negative (Negative); Leukocyte Esterase,Urine Negative (Negative); Mucus,Urine Few per lpf (None-Few); Nitrite,Urine Negative (Negative); PH,Urine 6.5 pH Units (5.0-8.0); Protein,Urine 30 mg/dL (Neg-Trace); RBC,Urine 0-3 per hpf (0-3); Specific Gravity,Urine 1.023 (1.010-1.025); Urobilinogen,Urine Normal (Normal); WBC,Urine 0-3 per hpf (0-3)
[2019-11-14 17:23] LABS: White Blood Count 31.2 K/mcL (4.3-11.1)
[2019-11-14 17:42] LABS: Alanine Aminotransferase 40 Units/L (7-52); Albumin/Globulin Ratio 1.7 (1.1-2.2); Alkaline Phosphatase 129 Units/L (34-104); Aspartate Amino Transferase 19 Units/L (13-39); BUN/Creatinine Ratio 35 (6-26); Bilirubin,Total 0.3 mg/dL (0.3-1.0); Blood Urea Nitrogen 22 mg/dL (8-23); Calcium 9.5 mg/dL (8.6-10.3); Carbon Dioxide 28 mEq/L (23-29); Chloride 99 mEq/L (98-107); Globulin 2.4 g/dL (2.4-3.5); Glucose 195 mg/dL (70-105); Osmolality,Calculated 291 (280-300); Potassium 3.9 mEq/L (3.5-5.1); Sodium 136 mEq/L (136-145); Total Protein 6.4 g/dL (6.4-8.9); Troponin I 0.06 ng/mL (< 0.04); eGFR For African Americans > 60 (> 60); eGFR For Non-African Americans > 60 (> 60)
[2019-11-14 17:46] LABS: Lymphocytes # 1.3 K/mcL (0.6-4.6); Monocytes # 1.6 K/mcL (0.0-1.3); Neutrophils # 27.1 K/mcL (1.6-8.9)
[2019-11-14 17:53] LABS: Polychromasia 1+ (Not Present)
[2019-11-14] MEDS ORDERED: Cefepime HCl 2,000 MG in Water for inj. (sterile) 20 ML IVP STA (18:18)
[2019-11-14] MEDS: 0.9 % Sodium Chloride 1,000 ML IVC SCH ×2 (19:37→20:15)
[2019-11-14] MEDS ORDERED: Acetaminophen 325 MG TABLET PO PRN (19:45)
[2019-11-14] MEDS ORDERED: Naloxone 0.4 MG/ML INJ IVP PRN (19:45)
[2019-11-14] MEDS ORDERED: Ondansetron 4 MG/2 ML VIAL IVP PRN (19:45)
[2019-11-14] MEDS ORDERED: *HR* HYDROcodone/Acet 5/325 mg TABLET PO PRN (19:45)
[2019-11-14] MEDS ORDERED: *HR* Dextrose 50 % in Water (Vial) 50 ML VIAL IVP PRN (19:50)
[2019-11-14] MEDS ORDERED: D5% in Water 1,000 ML IVC PRN (19:50)
[2019-11-14] MEDS ORDERED: Dextrose Gel 15 GM/37.5 ML TUBE PO PRN ×2 (19:50)
[2019-11-14] MEDS ORDERED: predniSONE 20 MG TABLET PO SCH (21:00)
[2019-11-14] MEDS: Insulin DETEMIR 100 UNIT/ML X5UNITS SQ SCH ×2 (21:40→22:17)
[2019-11-14] MEDS: Ringers Solution, Lactated 1,000 ML IVC SCH (21:50)
[2019-11-14] MEDS: [UNRECOGNIZED DRUG - OTHER] PO SCH ×2 (21:50→21:54)
[2019-11-14] MEDS: Budesonide/Formoterol 160/4.5 1 PUFF INH IH SCH (21:54)
[2019-11-14] MEDS: Gabapentin 400 MG CAPSULE PO SCH (22:18)
[2019-11-14] MEDS: Melatonin 3 MG TABLET PO SCH (22:18)
[2019-11-14] MEDS: *HR* Enoxaparin 80 MG/0.8 ML SYRINGE SQ SCH (22:18)
[2019-11-15] MEDS ORDERED: *HR* Heparin 5,000 UNIT/ML VIAL SQ SCH
[2019-11-15] MEDS: Insulin LISPRO 300 UNITS/3 ML VIAL SQ SCH ×5 (00:56→23:18)
[2019-11-15 01:15] LABS: Hematocrit 27.2 % (35.3-44.9); Hemoglobin 8.5 g/dL (11.5-15.4); Mean Corpuscular HGB Conc 31.3 g/dL (31.6-35.5); Mean Corpuscular Hemoglobin 29.7 pg (28.0-33.3); Mean Corpuscular Volume 95.1 fL (83.0-100.0); Mean Platelet Volume 9.1 fL (9.4-12.4); Nucleated Red Blood Cells 0.8 /100 WBC (0); Platelet Count 132 K/mcL (140-400); Red Blood Count 2.86 M/mcL (3.82-4.97); Red Cell Distribution Width 17.8 % (11.5-14.5); White Blood Count 28.8 K/mcL (4.3-11.1)
[2019-11-15 01:19] LABS: INR 1.1; Prothrombin Time 12.3 Seconds (9.4-12.1)
[2019-11-15] MEDS: Cefepime HCl 2,000 MG in Water for inj. (sterile) 20 ML IVP SCH ×3 (01:21→17:00)
[2019-11-15] MEDS: MethylPREDNISolone 40 MG/ML VIAL IVP SCH ×3 (01:21→17:01)
[2019-11-15 01:32] LABS: Alanine Aminotransferase 35 Units/L (7-52); Albumin 3.2 g/dL (3.5-5.7); Albumin/Globulin Ratio 1.5 (1.1-2.2); Alkaline Phosphatase 99 Units/L (34-104); Aspartate Amino Transferase 18 Units/L (13-39); BUN/Creatinine Ratio 36 (6-26); Bilirubin,Total 0.3 mg/dL (0.3-1.0); Blood Urea Nitrogen 17 mg/dL (8-23); Calcium 8.2 mg/dL (8.6-10.3); Carbon Dioxide 26 mEq/L (23-29); Chloride 106 mEq/L (98-107); Globulin 2.1 g/dL (2.4-3.5); Glucose 74 mg/dL (70-105); Magnesium 1.4 mg/dL (1.6-2.6); Osmolality,Calculated 290 (280-300); Phosphorous 3.3 mg/dL (2.7-4.5); Potassium 3.6 mEq/L (3.5-5.1); Sodium 140 mEq/L (136-145); Total Protein 5.3 g/dL (6.4-8.9); eGFR For African Americans > 60 (> 60); eGFR For Non-African Americans > 60 (> 60)
[2019-11-15 01:34] LABS: Anisocytosis 1+ (Not Present); Monocytes # 0.6 K/mcL (0.0-1.3); Neutrophils # 24.2 K/mcL (1.6-8.9); Platelet Estimate Slight Decrease (Normal); Polychromasia 1+ (Not Present); Smudge Cells Present (Not Present)
[2019-11-15] MEDS ORDERED: Furosemide 20 MG/2 ML VIAL IVP ONE ×2 (02:59→03:02)
[2019-11-15] MEDS: Ringers Solution, Lactated 1,000 ML IVC SCH (05:16)
[2019-11-15] MEDS: *HR* Enoxaparin 80 MG/0.8 ML SYRINGE SQ SCH ×2 (07:27→22:43)
[2019-11-15] MEDS: Gabapentin 300 MG CAPSULE PO SCH (07:28)
[2019-11-15] MEDS: Vancomycin 1,250 MG/262.5 ML IV.SOLN IVPB SCH ×2 (07:29→17:00)
[2019-11-15] MEDS: Tiotropium 18 MCG inhalation IH SCH (07:40)
[2019-11-15] MEDS: Budesonide/Formoterol 160/4.5 1 PUFF INH IH SCH ×2 (07:40→19:48)
[2019-11-15] MEDS: *HR* OxyCODONE/APAP 10/325 TABLET PO PRN ×3 (07:45→22:43)
[2019-11-15] MEDS: [UNRECOGNIZED DRUG - OTHER] PO SCH ×3 (10:47→22:43)
[2019-11-15] MEDS ORDERED: 0.9 % Sodium Chloride 1,000 ML IVC SCH (14:30)
[2019-11-15] MEDS: Melatonin 3 MG TABLET PO SCH (22:43)
[2019-11-15] MEDS: Gabapentin 400 MG CAPSULE PO SCH (22:43)
[2019-11-15] MEDS: Insulin DETEMIR 100 UNIT/ML X5UNITS SQ SCH (23:18)
[2019-11-16] MEDS: Cefepime HCl 2,000 MG in Water for inj. (sterile) 20 ML IVP SCH ×4 (01:15→23:37)
[2019-11-16] MEDS: MethylPREDNISolone 40 MG/ML VIAL IVP SCH ×3 (01:15→17:23)
[2019-11-16 06:40] LABS: Hematocrit 23.5 % (35.3-44.9); Hemoglobin 7.3 g/dL (11.5-15.4); Mean Corpuscular HGB Conc 31.1 g/dL (31.6-35.5); Mean Corpuscular Hemoglobin 29.7 pg (28.0-33.3); Mean Corpuscular Volume 95.5 fL (83.0-100.0); Mean Platelet Volume 11.2 fL (9.4-12.4); Platelet Count 103 K/mcL (140-400); Red Blood Count 2.46 M/mcL (3.82-4.97); Red Cell Distribution Width 17.5 % (11.5-14.5)
[2019-11-16 06:42] LABS: White Blood Count 31.7 K/mcL (4.3-11.1)
[2019-11-16] MEDS: *HR* Enoxaparin 80 MG/0.8 ML SYRINGE SQ SCH ×2 (07:59→19:49)
[2019-11-16] MEDS: Gabapentin 300 MG CAPSULE PO SCH (07:59)
[2019-11-16] MEDS: [UNRECOGNIZED DRUG - OTHER] PO SCH ×3 (07:59→19:50)
[2019-11-16] MEDS: Insulin LISPRO 300 UNITS/3 ML VIAL SQ SCH ×4 (08:00→20:17)
[2019-11-16] MEDS ORDERED: Aminoglycoside Consult 1 EACH MC ONE (09:46)
[2019-11-16 10:25] LABS: BUN/Creatinine Ratio 38 (6-26); Blood Urea Nitrogen 21 mg/dL (8-23); Calcium 8.6 mg/dL (8.6-10.3); Carbon Dioxide 24 mEq/L (23-29); Chloride 101 mEq/L (98-107); Glucose 167 mg/dL (70-105); Osmolality,Calculated 283 (280-300); Potassium 4.4 mEq/L (3.5-5.1); Sodium 133 mEq/L (136-145); eGFR For African Americans > 60 (> 60); eGFR For Non-African Americans > 60 (> 60)
[2019-11-16] MEDS: Budesonide/Formoterol 160/4.5 1 PUFF INH IH SCH ×2 (10:34→22:10)
[2019-11-16] MEDS: Tiotropium 18 MCG inhalation IH SCH (10:35)
[2019-11-16] MEDS ORDERED: Vancomycin 1,250 MG/262.5 ML IV.SOLN IVPB SCH (11:00)
[2019-11-16] MEDS: Vancomycin 1,500 MG/265 ML IV.SOLN IVPB SCH ×2 (11:29→23:37)
[2019-11-16] MEDS: *HR* OxyCODONE/APAP 10/325 TABLET PO PRN (14:52)
[2019-11-16] MEDS: Melatonin 3 MG TABLET PO SCH (19:49)
[2019-11-16] MEDS: Gabapentin 400 MG CAPSULE PO SCH (19:49)
[2019-11-16] MEDS: Insulin DETEMIR 100 UNIT/ML X5UNITS SQ SCH (19:49)
[2019-11-17] MEDS: MethylPREDNISolone 40 MG/ML VIAL IVP SCH ×2 (05:22→17:45)
[2019-11-17 06:55] LABS: Hemoglobin 7.7 g/dL (11.5-15.4)
[2019-11-17 06:56] LABS: Hematocrit 24.6 % (35.3-44.9); Mean Corpuscular HGB Conc 31.3 g/dL (31.6-35.5); Mean Corpuscular Hemoglobin 30.1 pg (28.0-33.3); Mean Corpuscular Volume 96.1 fL (83.0-100.0); Mean Platelet Volume 9.8 fL (9.4-12.4); Platelet Count 171 K/mcL (140-400); Red Blood Count 2.56 M/mcL (3.82-4.97); Red Cell Distribution Width 17.6 % (11.5-14.5)
[2019-11-17 07:16] LABS: BUN/Creatinine Ratio 40 (6-26); Blood Urea Nitrogen 22 mg/dL (8-23); Calcium 9.2 mg/dL (8.6-10.3); Carbon Dioxide 27 mEq/L (23-29); Chloride 101 mEq/L (98-107); Glucose 83 mg/dL (70-105); Osmolality,Calculated 280 (280-300); Potassium 4.3 mEq/L (3.5-5.1); Sodium 134 mEq/L (136-145); eGFR For African Americans > 60 (> 60); eGFR For Non-African Americans > 60 (> 60)
[2019-11-17 07:29] LABS: White Blood Count 35.7 K/mcL (4.3-11.1)
[2019-11-17] MEDS: Tiotropium 18 MCG inhalation IH SCH (08:15)
[2019-11-17] MEDS: Budesonide/Formoterol 160/4.5 1 PUFF INH IH SCH ×2 (08:15→19:56)
[2019-11-17] MEDS: Insulin LISPRO 300 UNITS/3 ML VIAL SQ SCH ×4 (09:51→19:25)
[2019-11-17] MEDS: Cefepime HCl 2,000 MG in Water for inj. (sterile) 20 ML IVP SCH ×2 (09:55→17:44)
[2019-11-17] MEDS: Gabapentin 300 MG CAPSULE PO SCH (09:55)
[2019-11-17] MEDS: *HR* Enoxaparin 80 MG/0.8 ML SYRINGE SQ SCH ×2 (09:56→20:00)
[2019-11-17] MEDS: *HR* OxyCODONE/APAP 10/325 TABLET PO PRN ×2 (09:56→19:53)
[2019-11-17] MEDS: [UNRECOGNIZED DRUG - OTHER] PO SCH ×3 (10:02→20:04)
[2019-11-17] MEDS: Vancomycin 1,500 MG/265 ML IV.SOLN IVPB SCH (11:41)
[2019-11-17] MEDS: Melatonin 3 MG TABLET PO SCH (19:53)
[2019-11-17] MEDS: Gabapentin 400 MG CAPSULE PO SCH (19:53)
[2019-11-18] MEDS: Cefepime HCl 2,000 MG in Water for inj. (sterile) 20 ML IVP SCH ×3 (00:20→16:15)
[2019-11-18 05:09] LABS: Hemoglobin 8.2 g/dL (11.5-15.4); Mean Platelet Volume 9.6 fL (9.4-12.4)
[2019-11-18 05:10] LABS: Hematocrit 25.1 % (35.3-44.9); Mean Corpuscular HGB Conc 32.7 g/dL (31.6-35.5); Mean Corpuscular Hemoglobin 30.3 pg (28.0-33.3); Mean Corpuscular Volume 92.6 fL (83.0-100.0); Platelet Count 247 K/mcL (140-400); Red Blood Count 2.71 M/mcL (3.82-4.97); Red Cell Distribution Width 18.1 % (11.5-14.5)
[2019-11-18 05:20] LABS: White Blood Count 42.9 K/mcL (4.3-11.1)
[2019-11-18 05:22] LABS: BUN/Creatinine Ratio 41 (6-26); Blood Urea Nitrogen 25 mg/dL (8-23); Carbon Dioxide 24 mEq/L (23-29); Chloride 99 mEq/L (98-107); Glucose 116 mg/dL (70-105); Osmolality,Calculated 283 (280-300); Potassium 4.4 mEq/L (3.5-5.1); Sodium 134 mEq/L (136-145); eGFR For African Americans > 60 (> 60); eGFR For Non-African Americans > 60 (> 60)
[2019-11-18] MEDS: MethylPREDNISolone 40 MG/ML VIAL IVP SCH (05:54)
[2019-11-18] MEDS: Tiotropium 18 MCG inhalation IH SCH (07:57)
[2019-11-18] MEDS: Budesonide/Formoterol 160/4.5 1 PUFF INH IH SCH ×2 (07:57→19:57)
[2019-11-18] MEDS: *HR* OxyCODONE/APAP 10/325 TABLET PO PRN ×2 (07:57→16:20)
[2019-11-18] MEDS: Gabapentin 300 MG CAPSULE PO SCH (08:04)
[2019-11-18] MEDS: *HR* Enoxaparin 80 MG/0.8 ML SYRINGE SQ SCH (08:04)
[2019-11-18] MEDS: Insulin LISPRO 300 UNITS/3 ML VIAL SQ SCH ×4 (08:07→22:44)
[2019-11-18] MEDS: [UNRECOGNIZED DRUG - OTHER] PO SCH ×2 (08:07→16:15)
[2019-11-18] MEDS: predniSONE 20 MG TABLET PO SCH ×2 (16:09→16:15)
[2019-11-19] MEDS: Cefepime HCl 2,000 MG in Water for inj. (sterile) 20 ML IVP SCH ×4 (00:12→23:50)
[2019-11-19] MEDS: Melatonin 3 MG TABLET PO SCH ×2 (00:13→21:18)
[2019-11-19] MEDS: *HR* Enoxaparin 80 MG/0.8 ML SYRINGE SQ SCH ×3 (00:14→17:48)
[2019-11-19] MEDS: [UNRECOGNIZED DRUG - OTHER] PO SCH ×4 (00:20→21:18)
[2019-11-19] MEDS: Gabapentin 400 MG CAPSULE PO SCH ×2 (00:30→21:18)
[2019-11-19 05:27] LABS: Hemoglobin 8.6 g/dL (11.5-15.4); Red Cell Distribution Width 18.4 % (11.5-14.5)
[2019-11-19 05:29] LABS: Hematocrit 27.1 % (35.3-44.9); Mean Corpuscular HGB Conc 31.7 g/dL (31.6-35.5); Mean Corpuscular Hemoglobin 29.6 pg (28.0-33.3); Mean Corpuscular Volume 93.1 fL (83.0-100.0); Mean Platelet Volume 9.2 fL (9.4-12.4); Platelet Count 282 K/mcL (140-400); Red Blood Count 2.91 M/mcL (3.82-4.97)
[2019-11-19 05:33] LABS: White Blood Count 40.2 K/mcL (4.3-11.1)
[2019-11-19] MEDS: Budesonide/Formoterol 160/4.5 1 PUFF INH IH SCH ×2 (07:23→21:55)
[2019-11-19] MEDS: Insulin LISPRO 300 UNITS/3 ML VIAL SQ SCH ×4 (08:44→21:17)
[2019-11-19] MEDS: predniSONE 20 MG TABLET PO SCH ×3 (08:54→17:45)
[2019-11-19] MEDS: Gabapentin 300 MG CAPSULE PO SCH (08:54)
[2019-11-19] MEDS: Tiotropium 18 MCG inhalation IH SCH (11:37)
[2019-11-20 00:52] LABS: Bilirubin,Urine Negative (Negative); Blood,Urine Negative (Negative); Clarity,Urine Clear (Clear); Color,Urine Light-Yellow (Yellow); Glucose,Urine (UA) Normal (Normal); Ketones,Urine Negative (Negative); Leukocyte Esterase,Urine Negative (Negative); Nitrite,Urine Negative (Negative); Protein,Urine Trace mg/dL (Neg-Trace); Specific Gravity,Urine 1.017 (1.010-1.025); Urobilinogen,Urine Normal (Normal)
[2019-11-20 03:36] LABS: Basophils # 0.1 K/mcL (0.0-0.2); Basophils % 0.2 %; Hemoglobin 8.1 g/dL (11.5-15.4); Immature Granulocytes % 16.4 % (0-4); Lymphocytes # 1.8 K/mcL (0.6-4.6); Mean Corpuscular HGB Conc 32.4 g/dL (31.6-35.5); Mean Corpuscular Hemoglobin 30.5 pg (28.0-33.3); Monocytes # 1.4 K/mcL (0.0-1.3); Monocytes % 3.8 %; Neutrophils # 27.4 K/mcL (1.6-8.9); Nucleated Red Blood Cells 0.9 /100 WBC (0); Platelet Count 278 K/mcL (140-400); Red Blood Count 2.66 M/mcL (3.82-4.97); Red Cell Distribution Width 18.6 % (11.5-14.5); Segmented Neutrophils % 74.6 %
[2019-11-20 03:47] LABS: White Blood Count 36.7 K/mcL (4.3-11.1)
[2019-11-20 03:54] LABS: BUN/Creatinine Ratio 42 (6-26); Blood Urea Nitrogen 23 mg/dL (8-23); Carbon Dioxide 26 mEq/L (23-29); Chloride 99 mEq/L (98-107); Glucose 138 mg/dL (70-105); Osmolality,Calculated 284 (280-300); Potassium 4.1 mEq/L (3.5-5.1); Sodium 134 mEq/L (136-145); eGFR For African Americans > 60 (> 60); eGFR For Non-African Americans > 60 (> 60)
[2019-11-20 04:34] LABS: Anisocytosis 1+ (Not Present); Platelet Estimate Normal (Normal); Polychromasia 1+ (Not Present)
[2019-11-20] MEDS: *HR* Enoxaparin 80 MG/0.8 ML SYRINGE SQ SCH ×2 (06:33→17:34)
[2019-11-20] MEDS: Budesonide/Formoterol 160/4.5 1 PUFF INH IH SCH (07:51)
[2019-11-20] MEDS: Tiotropium 18 MCG inhalation IH SCH (07:52)
[2019-11-20] MEDS: Gabapentin 300 MG CAPSULE PO SCH (08:09)
[2019-11-20] MEDS: predniSONE 20 MG TABLET PO SCH ×3 (08:09→16:48)
[2019-11-20] MEDS: [UNRECOGNIZED DRUG - OTHER] PO SCH ×2 (08:09→15:11)
[2019-11-20] MEDS: Cefepime HCl 2,000 MG in Water for inj. (sterile) 20 ML IVP SCH ×2 (08:10→16:48)
[2019-11-20] MEDS: Insulin LISPRO 300 UNITS/3 ML VIAL SQ SCH ×3 (08:18→16:52)
[2019-11-20 18:35] VITALS: BP 116/66
== END 2019-11-20 19:24 | disposition short-term general hospital (02) | DRG 57 ==
LOC: 2NENU 15:49 → EMEROOARM 15:49 → SUATTDRO 19:45 → 2NENU 19:57 → 3ANU 11-18 18:41
PROVIDERS: ADMIT Internal Medicine; ATTEND Internal Medicine